=== PATIENT | male | born 1970 | race Caucasian/White ===

== ENCOUNTER 2016-08-26 16:44 | Emergency (ER) | payer SELFPAY ==
[2016-08-26] MEDS ORDERED: NITROGLYCERIN 0.4 MG TAB.SUBL SL ONE (16:50)
[2016-08-26] MEDS ORDERED: ONDANSETRON HCL/PF 4 MG/ 2ML VIAL IVP ONE (16:58)
[2016-08-26] MEDS ORDERED: ONDANSETRON HCL/PF 4 MG/ 2ML VIAL ONE (16:59)
[2016-08-26] MEDS ORDERED: ASPIRIN 81 MG CHEW TAB PO ONE (17:01)
[2016-08-26] MEDS ORDERED: 0.9 % SODIUM CHLORIDE 1,000 ML IV ONE (17:01)
[2016-08-26] MEDS ORDERED: MORPHINE SULFATE 2 MG/ML DISP.SYRIN IVP ONE ×2 (17:02→17:15)
[2016-08-26] MEDS ORDERED: MORPHINE SULFATE 4 MG/ML DISP.SYRIN ONE ×2 (17:02→17:14)
--- NOTE | 2016-08-26 17:07 | ED Physician Documentation ---
Chest Pain - HISTORIAN Historian: patient - HPI Chief Complaint: Chest Pain Onset: minutes (30 minutes) Timing: sudden onset Duration: constant Last known Well Date: 08/26/16 Last Known Well Time: 16:00 Context: other (while driving) Severity: moderate Quality: pressure, tightness, like prior IN Chest Pain Radiation: jaw, other (elbows ) Chest Pain Signs/Symptoms: nausea. denies: vomiting, diaphoresis Worsened By: nothing. denies: deep breaths, exertion Further Comments: yes (Patient was traveling from [place] to [place] when on the Aug 25 he was admitted to [facility] with chest pain. He had a cardiac cath done and had a stent place in his LAD. He was discharged today and while drivning once again developed some chest pain in the precordial area, similar to what he has had before when he was having a IN. Is having sme radiation into both shoulders and in the neck area bilaterally. Is having some SOB no diaphoresis. Rates the pain 8/10. Zacarias had 7 stints placed thus far starting at 33yo. Has a history of hyperipidemia, DM, HTN. Has a brother who has at 36yo and father at 43yo with CAD.) - ROS CONST: none - PAST HX IN risk factors: hypertension, diabetes Type 2, hyperlipidemia, cardiac disease , other (family hx) DVT/PE Risk Factors: other (recent hospitalization) Lung disease: none Surgeries/Procedures: other (cardiac cath with stinting) Allergies/Adverse Reactions: Allergies Allergy/AdvReac Type Severity Reaction Status Date / Time codeine Allergy Verified 08/26/16 17:21 - SOCIAL HX Smoking History: non-smoker, chew Alcohol Use: none Drug Use: none - FAMILY HX Family HX: CAD under 55 - REVIEWED ASSESSMENTS Nursing Assessment Reviewed: Yes Vitals Reviewed: Yes ED Results Lab/Radiology - Orders Orders: ED Orders Category Date Time Status Continuous EKG monitoring Q30M Care 08/26/16 17:01 Active Continuous Pulse Oximetry Q30M Care 08/26/16 17:[address] Saline Lock/IV NOW Care 08/26/16 17:01 Active CHEST 1 VIEW [RAD] Stat Exams 08/26/16 17:01 Ordered CBC/PLATELET/DIFF Routine Lab 08/26/16 17:01 Ordered CMP Routine Lab 08/26/16 17:01 Ordered TROPONIN I (cTnI) Stat Lab 08/26/16 17:01 Ordered 0.9 % Sodium Chloride [Normal Saline] 1,000 ml Med 08/26/16 17:01 Discontinued IV .STK-MED Aspirin Med 08/26/16 17:01 Discontinued 324 mg PO NOW ONE Morphine Sulfate [DepoDUR] Med 08/26/16 17:02 Discontinued 4 mg .ROUTE .STK-MED ONE Morphine Sulfate [DepoDur] Med 08/26/16 17:02 Discontinued 3 mg IVP NOW ONE Ondansetron HCl/Pf [Zofran 4 mg/2 ml] Med 08/26/16 16:59 Discontinued 4 mg .ROUTE .STK-MED ONE Oxygen Daily Oxygen 08/26/16 17:15 Ordered EKG WITH COMPARISON Stat Ther 08/26/16 17:01 Ordered Chest Pain Physical Exam - EXAM General Appearance: alert, moderate distress, anxious EENT: eye inspection normal, pharynx normal, no signs of dehydration Neck: nml inspection, no carotid bruit. No: JVD present, lymphadenopathy Respiratory: no resp. distress, chest non-tender, nml breath sounds. No: wheezes, rales, rhonchi CVS: reg. rate & rhythm, no murmur, no gallop, no friction rub, pulses full, pulses equal Abdomen: soft, no organomegaly, normal bowel sounds, no abdominal bruit, no distension, non-tender Skin: warm/dry, normal color Extremities: non-tender, normal range of motion Neuro: oriented X3, CN's nml as tested, mood/affect nml, cognition normal Discharge Clincal Impression: CAD (coronary artery disease) Qualifiers: Coronary Disease-Associated Artery/Lesion type: [place] artery [place] vs. transplanted heart: [place] heart Associated angina: with unstable angina Qualified Code(s): I25.110 - Atherosclerotic heart disease of [place] coronary artery with unstable angina pectoris Condition: Stable Disposition: 02 XFER SHT-TRM HOSP Decision to Admit: NO Date of Decison to Admit: 08/26/16 Decision Time: 17:26
[2016-08-26 17:12] LABS: BASOPHILS % 0.2 (0.0-1.5); EOSINOPHILS % 2.2 % (0.0-6.8); LYMPHOCYTES # 1.5 # k/uL (0.6-4.0); MEAN CORPUSCULAR HEMOGLOBIN 28.7 pg (28.0-34.0); MONOCYTES # 0.3 # k/uL (0.0-0.9); MONOCYTES % 5.1 % (0.0-11.0); NEUTROPHILS # 3.9 # k/uL (1.4-7.7)
[2016-08-26 17:22] LABS: eGFR (African) > 60; eGFR (Non-African) > 60
--- NOTE | 2016-08-26 17:32 | Diagnostic Imaging Report ---
[facility] [address] [facility].[address] [id number] Report Submission Date: Aug 26, 2016 5:18:01 PM EMT PARAMEDIC Patient Study Name: ESTELA MELTON Date: Aug 26, 2016 5:10:17 PM EMT PARAMEDIC Modality Type: CR Gender: M Description: CHEST : 68 Institution: [facility] Physician: ASH RENAE Ap portable upright radiographs of the chest Clinical history: Chest pain Technique: anterior /posterior portable upright Findings: The lung [place] are clear. The heart and mediastinal structures are normal. The bony thorax is unremarkable. No pneumothorax or pleural effusion is seen. Impression: No acute pulmonary disease Electronically signed on Aug 26, 2016 5:18:01 PM EMT PARAMEDIC by: Bayron MUSTAFA
[2016-08-26 18:10] VITALS: BP 119/73
[2016-08-26 22:31] LABS: TROPONIN T <0.010 ng/mL (<0.010)
== END 2016-08-26 17:25 | disposition short-term general hospital (02) ==
LOC: ED 16:44
DX: I25.110 Atherosclerotic heart disease of native coronary artery with unstable angina pectoris (principal)
CPT/HCPCS: 71010; 80053; 84484; 85025; 85379; 93005; J2270; J2405; J7030; 96374; 96375; 99284; S1016